=== PATIENT | male | born 1995 | race Caucasian/White ===

== ENCOUNTER 2019-11-18 18:10 | Emergency (ER) | payer OTHER, SELFPAY ==
[2019-11-18 18:16] VITALS: BP 134/43; PULSE 81; RESP 16; TEMP 37.5; O2SAT 98
[2019-11-18] MEDS: SODIUM CHLORIDE 0.9% IV 1,000 ML 999 ML IV CONT (18:33)
[2019-11-18] MEDS: diphenhydrAMINE HCl INJ 50 MG/ML VIAL 25 MG IV PUSH (18:33)
[2019-11-18 18:44] LABS: Basophils Percent Auto 0.4 % (0.2-1.2); Eosinophils Absolute Auto 0.1 K/mm3 (0-0.3); Eosinophils Percent Auto 0.6 % (0-4.4); Hemoglobin 14.4 g/dL (14.0-18.0); Immature Granulocyte Absolute 0.02 K/mm3 (0.00-0.031); Immature Granulocyte Percent A 0.2 % (0-0.5); Lymphocytes Absolute Auto 3.24 K/mm3 (0.9-3.2); Lymphocytes Percent Auto 38.5 % (18.3-44.2); Mean Corpuscular HGB Conc 33.5 g/dl (32-36); Mean Corpuscular Hemoglobin 30.5 pg (26-34); Mean Corpuscular Volume 91.1 fl (80-100); Mean Platelet Volume 10.7 fl (7.4-10.4); Monocytes Absolute Auto 0.7 K/mm3 (0.1-0.6); Monocytes Percent Auto 8.2 % (2.6-8.5); Neutrophils Absolute Auto 4.4 K/mm3 (1.3-6.7); Neutrophils Percent Auto 52.1 % (45.5-73.1); Platelet Count Result 276 k/mm3 (150-375); Red Blood Count 4.72 M/mm3 (4.6-6.20); Red Cell Distribution Width 13.7 % (11.5-14.5); White Blood Count 8.4 K/mm3 (4.5-10.0)
[2019-11-18] MEDS: BENZTROPINE MESYLATE 1 MG TABLET 2 MG PO (18:46)
[2019-11-18 18:53] LABS: Alanine Aminotransferase 16 U/L (4-50); Albumin Level 4.1 g/dL (3.5-5.1); Alkaline Phosphatase 97 U/L (38-126); Anion Gap 7 mmol/L (8-16); Aspartate Amino Transferase 22 U/L (17-59); Bilirubin,Total 0.6 mg/dL (0.2-1.3); Blood Urea Nitrogen 7 mg/dL (9-20); Calcium 9.7 mg/dL (8.4-10.2); Carbon Dioxide 28 mmol/L (22-30); Chloride 107 mmol/L (98-107); Estimated CRCL calculation 96 ml/min; Estimated Glomerular Filt Rate > 60; Glucose 95 mg/dL (75-110); Potassium 3.8 mmol/L (3.4-5.0); Sodium 142 mmol/L (137-145)
--- NOTE | 2019-11-18 19:08 | ED.GENADULT ---
HPI - General Adult General Chief complaint: Unspecified Stated complaint: tremors Time Seen by Provider: 11/18/19 18:12 Source: patient Mode of arrival: EMS Limitations: no limitations History of Present Illness HPI narrative: Patient is a 24-year-old male who presents to emergency department for evaluation of needing Cogentin patient notes that he has been on this medication for his tremors patient has a prescription waiting for him at the pharmacy but did not pick it up came in by ambulance for continued tremors patient with history of alcohol abuse denies any recent alcohol use or drug use patient denies any pain or other complaints and is requesting a dose of his Cogentin and notes that he will then fill his medication in the next day Related Data Home Medications Medication Instructions Recorded Confirmed aripiprazole [Abilify] 10 mg PO DAILY 11/18/19 gabapentin 600 mg PO TID 11/18/19 naproxen 500 mg PO BID 11/18/19 pantoprazole [Protonix] 40 mg PO QAM 11/18/19 quetiapine 25 mg PO HS 11/18/19 trazodone 100 mg PO HS 11/18/19 Allergies Allergy/AdvReac Type Severity Reaction Status Date / Time No Known Allergies Allergy Verified 11/18/19 18:19 Review of Systems Review of Systems: All systems reviewed & are unremarkable except as noted in HPI and below PMFSH Past Medical History Medical History (Updated 11/18/19 @ 19:11 by Jadiel Corbett PA-C) Alcohol abuse Anxiety Depression Social History Social History (Updated 11/18/19 @ 19:10 by Jadiel Corbett PA-C) Alcohol intake: former Exam Narrative: Exam Narrative: Follow up with your primary care doctor in 5-7 days for re-evaluation. Go to ER for worsening pain, vision changes, nausea/vomiting, fever/chills, weakness, chest pain, shortness of breath, numbness/tingling, slurred speech, difficulty walking, change in mental status etc. or any other concerns. Fill your medications and take them as directed Take any prescribed medications as directed. Course Course Emergency Course: Patient will be discharged home advised to follow with specialist agreeing to do so felt appropriate for outpatient reevaluation Vital Signs Vital signs: Vital Signs Temperature 99.5 F 11/18/19 18:16 Pulse Rate 81 11/18/19 18:16 Respiratory Rate 16 11/18/19 18:16 Blood Pressure 134/43 L 11/18/19 18:16 Pulse Oximetry 98 11/18/19 18:16 Temperature 99.5 F 11/18/19 18:16 Pulse Rate 81 11/18/19 18:16 Respiratory Rate 16 11/18/19 18:16 Blood Pressure 134/43 L 11/18/19 18:16 Pulse Oximetry 98 11/18/19 18:16 Medical Decision Making MDM Narrative Medical decision making narrative: Patient in the room in no distress hemodynamically stable felt appropriate for outpatient reevaluation agreeing to follow-up as directed or to return if symptoms worsen or concerns Vital Signs Vital Signs: Vital Signs Temperature 99.5 F 11/18/19 18:16 Pulse Rate 81 11/18/19 18:16 Respiratory Rate 16 11/18/19 18:16 Blood Pressure 134/43 L 11/18/19 18:16 Pulse Oximetry 98 11/18/19 18:16 Temperature 99.5 F 11/18/19 18:16 Pulse Rate 81 11/18/19 18:16 Respiratory Rate 16 11/18/19 18:16 Blood Pressure 134/43 L 11/18/19 18:16 Pulse Oximetry 98 11/18/19 18:16 Lab Data Result diagrams: 11/18/19 18:34 11/18/19 18:34 Labs: Lab Results 11/18/19 11/18/19 Range/Units 18:34 18:34 WBC 8.4 (4.5-10.0) K/mm3 RBC 4.72 (4.6-6.20) M/mm3 Hgb 14.4 (14.0-18.0) g/dL Hct 43.0 (42.0-52.0) % MCV 91.1 (80-100) fl MCH 30.5 (26-34) pg MCHC 33.5 (32-36) g/dl RDW 13.7 (11.5-14.5) % Plt Count 276 (150-375) k/mm3 MPV 10.7 H (7.4-10.4) fl Immature Gran % (Auto) 0.2 (0-0.5) % Neut % (Auto) 52.1 (45.5-73.1) % Lymph % (Auto) 38.5 (18.3-44.2) % [place] % (Auto) 8.2 (2.6-8.5) % Eos % (Auto) 0.6 (0-4.4) % Baso % (Auto) 0.4 (0.2-1.2) % Lymph # (Au
[2019-11-18 19:25] VITALS: BP 127/46; PULSE 72; RESP 16; O2SAT 99
== END 2019-11-18 19:40 | disposition home or self-care (01) ==
PROVIDERS: Emergency Medicine Emergency Medical Services; Emergency Provider Emergency Medicine
DX: R25.1 Tremor, unspecified (principal); F41.9 Anxiety disorder, unspecified; F32.9 Major depressive disorder, single episode, unspecified
CPT/HCPCS: 36415; 80053; 85025; 96361; 96374; 99284; A9270; J1200; J7030